=== PATIENT | male | born 1990 | race Two or more races ===

== ENCOUNTER 2020-02-03 09:14 | Emergency (ER) | payer OTHER ==
[~2020-02-03] VITALS: Ht 165.1 cm; Wt 122.5 kg
[2020-02-03 09:30] VITALS: BP 139/89
[2020-02-03] MEDS ORDERED: AMOXICILLIN500 MG ORAL (09:44)
--- NOTE | 2020-02-03 10:12 | Emergency Room Report ---
History of Present Illness General Chief Complaint: Upper Respiratory Illness Source: Patient Present Illness HPI 29-year-old male presents ED complaining of sore throat x1 day. Pain is dull, 6 out of 10, nonradiating. Denies fevers or chills. Denies cough. Denies sick contacts. No other aggravating relieving factors. Denies any other associated symptoms COVID-19 risk:Contact w/high r: No COVID-19 risk:Travel to affect: No Has patient experienced bolivar: No Allergies: Coded Allergies: No Known Allergies (Unverified , 02/03/20) Patient History Past Medical History: none Past Surgical History: none Pertinent Family History: none Social History: Denies: smoking, alcohol use, drug use Immunizations: UTD Reviewed Nursing Documentation: PMH: Agreed; PSxH: Agreed Nursing Documentation-PMH Past Medical History: No Stated History Review of Systems All Other Systems: negative except mentioned in HPI Physical Exam Vital Signs Date Time Temp Pulse Resp B/P (MAP) Pulse Ox O2 Delivery O2 Flow Rate FiO2 02/03/20 09:24 98.4 82 16 139/89 (106) 98 Room Air Sp02 EP Interpretation: reviewed, normal General Appearance: no apparent distress, alert, GCS 15, non-toxic Head: normocephalic, atraumatic Eyes: bilateral eye normal inspection, bilateral eye PERRL ENT: hearing grossly normal, no angioedema, normal voice, pharyngeal erythema Neck: full range of motion, supple/symm/no masses Respiratory: chest non-tender, lungs clear, normal breath sounds, speaking full sentences Cardiovascular #1: regular rate, rhythm, no edema Cardiovascular #2: 2+ carotid (R), 2+ carotid (L), 2+ radial (R), 2+ radial (L) , 2+ dorsalis pedis (R), 2+ dorsalis pedis (L) Gastrointestinal: normal bowel sounds, non tender, soft, non-distended, no guarding, no rebound Rectal: deferred Genitourinary: normal inspection, no CVA tenderness Musculoskeletal: back normal, normal range of motion, gait/station normal, non- tender Neurologic: alert, motor strength/tone normal, oriented x3, sensory intact, responsive, speech normal Psychiatric: judgement/insight normal, memory normal, mood/affect normal, no suicidal/homicidal ideation Reflexes: 3+ bicep (R), 3+ bicep (L), 3+ tricep (R), 3+ tricep (L), 3+ knee (R) , 3+ knee (L) Skin: no rash Lymphatic: no adenopathy Medical Decision Making Diagnostic Impression: Primary Impression: Pharyngitis Qualified Codes: J02.9 - Acute pharyngitis, unspecified ER Course Hospital Course 29-year-old male presents to ED complaining of sore throat Differential diagnoses include: URI, pharyngitis, otitis media Clinical course Patient placed on stretcher. After initial history, physical exam reveals a young male in no acute distress. Bilateral TM unremarkable. There is pharyngeal erythema, uvular swelling w/o tonsillar exudates. I discussed findings with patient. Consideration for pharyngitis. Will discharge home with antibiotics. Afebrile, nontoxic-appearing. In light of coronavirus pandemic I encourage patient to go home and self isolate. I also recommend close contacts to self isolate as well. Patient agrees. Safe for discharge for close outpatient follow-up. I will provide referrals Diagnosis - pharyngitis Stable and discharged home with prescriptions for amoxicillin. Instructed to followup with PMD. return to ED if symptoms recur or worsen Last Vital Signs Date Time Temp Pulse Resp B/P (MAP) Pulse Ox O2 Delivery O2 Flow Rate FiO2 02/03/20 09:30 98.4 86 16 139/89 98 Room Air Status: improved Disposition: HOME, SELF-CARE Condition: Stable Scripts Amoxicillin* (AMOXIL*) 500 Mg Capsule 500 MG ORAL THREE TIMES A DAY, #21 CAP Prov: Kris Jones MD 02/03/20 Referrals: Mamadou Handy Comp. [facility] Patient Instructions: Pharyngitis, [id number] Additional Instructions: there is a coronavirus pandemic. go home and self-isolate. your close contacts should self-isolate as well Kris Jones MD Feb 03, 2020 10:12
== END 2020-02-03 09:45 | disposition home or self-care (01) ==
LOC: EMR 09:45
DX: J02.9 Acute pharyngitis, unspecified (principal)
CPT/HCPCS: 99282